=== PATIENT | male | born 1960 | race American Indian/Alaskan Native ===

== ENCOUNTER 2019-07-17 12:44 | Emergency (ER) | payer OTHER ==
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
[2019-07-17 18:46] VITALS: BP 176/102
== END 2019-07-17 19:00 | disposition home or self-care (01) ==
LOC: ED 12:44
DX: T58.91XA Toxic effect of carbon monoxide from unspecified source, accidental (unintentional), initial encounter (principal); I10 Essential (primary) hypertension; Y92.89 Other specified places as the place of occurrence of the external cause
CPT/HCPCS: 82375; 94760; 99284